=== PATIENT | female | born 1985 | race Caucasian/White ===

== ENCOUNTER → 2022-07-29 | Emergency (ER) | payer MEDICAID ==
[~2022-07-29] VITALS: Ht 165.1 cm; Wt 84.0 kg
[~2022-07-29] MED LIST: AMOX500T3 PO; KETOROLAC TROMETH 60MG/2ML VIAL IM ONE; OMEP20TA44 OR
[2022-07-29 21:18] VITALS: BP 136/84
== END | disposition home or self-care (01) ==
LOC: ER 21:03
DX: J06.9 Acute upper respiratory infection, unspecified (principal); H92.02 Otalgia, left ear

== ENCOUNTER 2023-05-09 17:38 | Emergency (ER) | payer MEDICAID ==
[~2023-05-09] VITALS: Ht 162.6 cm; Wt 80.6 kg
[~2023-05-09 17:38] MED LIST changes: -KETOROLAC TROMETH 60MG/2ML VIAL IM ONE
[2023-05-09] MEDS ORDERED: KETOROLAC TROMETH 30 MG/ML 1ML VIAL IM ONE (18:30)
[2023-05-09] MEDS ORDERED: cefTRIAXone SOD 1,000 MG VL IM ONE (18:30)
[2023-05-09 18:31] VITALS: BP 186/85
[2023-05-09] MEDS ORDERED: AMOX875T4 PO (18:32)
[2023-05-09] MEDS ORDERED: ZOFR4T PO (18:32)
[2023-05-09] MEDS ORDERED: HYDR-4902 PO (18:32)
[2023-05-09] MEDS ORDERED: LIDOCAINE 1% HCL (LOCAL ANESTH.) INJ 20ML MDV ONE (18:35)
== END 2023-05-09 18:48 | disposition home or self-care (01) ==
LOC: ER 17:38
DX: K04.7 Periapical abscess without sinus (principal); I10 Essential (primary) hypertension; F12.90 Cannabis use, unspecified, uncomplicated; Z79.899 Other long term (current) drug therapy
CPT/HCPCS: 96372; 99284; J0696; J1885; J2001